=== PATIENT | female | born 1955 | race Caucasian/White ===

== ENCOUNTER → 2016-09-17 | Outpatient (REF) | payer OTHER | LOC: M SFHCPLAZ 11:38 | PROVIDERS: ATTEND Dermatology | DX: C44.529 Squamous cell carcinoma of skin of other part of trunk (principal); L56.8 Other specified acute skin changes due to ultraviolet radiation; L98.6 Other infiltrative disorders of the skin and subcutaneous tissue ==

== ENCOUNTER 2017-07-28 12:46 | Day surgery (SDC) | payer OTHER ==
[~2017-07-28 12:46] MED LIST: LIDOCAINE 2% INJ 100 MG/5 ML SDV (FOR ANES.) As Ordered; PROPOFOL 200 MG/20 ML VIAL As Ordered
[2017-07-28] MEDS: NS 1,000 ML IV (13:00)
== END 2017-07-28 14:27 | disposition home or self-care (01) ==
LOC: M OPP 12:46
DX: Z12.11 Encounter for screening for malignant neoplasm of colon (principal); K64.0 First degree hemorrhoids; K57.30 Diverticulosis of large intestine without perforation or abscess without bleeding; Z78.0 Asymptomatic menopausal state; Z87.442 Personal history of urinary calculi; Z88.0 Allergy status to penicillin; Z88.2 Allergy status to sulfonamides; Z79.899 Other long term (current) drug therapy; Z80.41 Family history of malignant neoplasm of ovary; Z80.0 Family history of malignant neoplasm of digestive organs
CPT/HCPCS: 45378

== ENCOUNTER → 2019-04-20 | Outpatient (REF) | payer OTHER ==
[~2019-04-20] MED LIST changes: +D400400C PO; +ESTR3TA PO; -LIDOCAINE 2% INJ 100 MG/5 ML SDV (FOR ANES.) As Ordered; +MULT1TAB18 PO; -PROPOFOL 200 MG/20 ML VIAL As Ordered
== END ==
LOC: M LAB REF 16:41
PROVIDERS: ATTEND Nurse Practitioner Adult Health
DX: L98.9 Disorder of the skin and subcutaneous tissue, unspecified (principal)

== ENCOUNTER → 2019-04-20 | Outpatient (REF) | payer OTHER | LOC: M LAB REF 17:11 | PROVIDERS: ATTEND Nurse Practitioner Adult Health | DX: L98.9 Disorder of the skin and subcutaneous tissue, unspecified (principal) ==

== ENCOUNTER 2024-11-24 08:19 | Day surgery (SDC) | payer MEDICARE, OTHER ==
[~2024-11-24] VITALS: Ht 160 cm; Wt 51.9 kg
[~2024-11-24 08:19] MED LIST changes: +THERTAB52 PO; +VAGI10TA VA; +VITA100093 PO
[2024-11-24] MEDS ORDERED: LR 1,000 ML IV SCH (08:45)
[2024-11-24 08:50] LABS: PLATELET COUNT, AUTOMATED 266 10^3/uL (150-450)
[2024-11-24] MEDS ORDERED: dexAMETHasone 4 MG/ML 1 ML VIAL As Ordered ONE (09:25)
[2024-11-24] MEDS ORDERED: ONDANSETRON 4MG 2ML VIAL As Ordered ONE (09:25)
[2024-11-24] MEDS ORDERED: KETOROLAC 30 MG/ML 1 ML VIAL As Ordered ONE (09:25)
[2024-11-24] MEDS ORDERED: LIDOCAINE 2% 100 MG/5 ML SDV (FOR ANES.) As Ordered ONE (09:25)
[2024-11-24] MEDS ORDERED: MIDAZOLAM INJ 2 MG/2 ML VIAL As Ordered ONE (09:29)
[2024-11-24] MEDS ORDERED: ACETAMINOPHEN 1000MG/100ML IV BAG As Ordered ONE (09:31)
[2024-11-24] MEDS ORDERED: SCOPOLAMINE 1MG TRANSDERMAL PATCH TOP ONE (10:05)
[2024-11-24] MEDS: IODINE STRONG SOLN 15 ML BTL As Ordered ONE (10:28)
[2024-11-24] MEDS: SILVER NITRATE APPLICATOR (1 = QTY 10) As Ordered ONE (10:28)
[2024-11-24] MEDS: ceFAZolin SOD 2 GM IV ONCE IV ONE (11:10)
[2024-11-24] MEDS: LIDOCAINE W/EPINEPHrine 1% 20 ML VIAL As Ordered ONE (11:10)
[2024-11-24] MEDS ORDERED: MORPHINE 2 MG/ML 1 ML VIAL IV PRN (11:35)
[2024-11-24] MEDS ORDERED: ONDANSETRON 4MG 2ML VIAL IV PRN (11:35)
[2024-11-24] MEDS ORDERED: DIBU28OI2 TOP (11:37)
[2024-11-24 12:30] VITALS: BP 109/57; TEMP 97.4; O2SAT 100
[2024-11-24] MEDS ORDERED: DIBUCAINE 1% OINTMENT 30 GM TOP PRN (12:40)
== END 2024-11-24 13:02 | disposition home or self-care (01) ==
LOC: M SDC 08:19
PROVIDERS: ATTEND Obstetrics & Gynecology
DX: D28.0 Benign neoplasm of vulva (principal); Z79.899 Other long term (current) drug therapy; Z79.3 Long term (current) use of hormonal contraceptives; Z90.710 Acquired absence of both cervix and uterus; Z88.2 Allergy status to sulfonamides; Z88.0 Allergy status to penicillin; Z80.41 Family history of malignant neoplasm of ovary
CPT/HCPCS: 11422; 36415; 85027; 86850; 86900; 86901; 88305; J0131; J0690; J1100; J1885; J2250; J2405; J3010